=== PATIENT | female | born 1990 | race American Indian/Alaskan Native ===

== ENCOUNTER 2019-09-14 13:26 | Emergency (ER) | payer MEDICAID ==
[2019-09-14 13:59] VITALS: BP 126/84
--- NOTE | 2019-09-14 14:22 | Emergency Department Report ---
Blank Doc - Documentation Documentation: 29-year-old female that presents with chest pain and SOB with dizziness. This initial assessment/diagnostic orders/clinical plan/treatment(s) is/are subject to change based on patients health status, clinical progression and re- assessment by fellow clinical providers in the ED. Further treatment and workup at subsequent clinical providers discretion. Patient/guardian urged not to elope from the ED as their condition may be serious if not clinically assessed and managed. Initial orders include: 2- EKG 3- labs 4- CXR
[2019-09-14 15:38] LABS: Basophils % (Auto) 0.3 % (0.0-1.8); Eosinophils # (Auto) 0.1 K/mm3 (0.0-0.4); Eosinophils % (Auto) 0.9 % (0.0-4.3); Hematocrit 41.9 % (30.3-42.9); Hemoglobin 13.3 gm/dl (10.1-14.3); Lymphocytes # (Auto) 1.5 K/mm3 (1.2-5.4); Lymphocytes % (Auto) 20.3 % (13.4-35.0); Mean Corpuscular HGB Conc 32 % (30-34); Mean Corpuscular Volume 83 fl (79-97); Monocytes # (Auto) 0.9 K/mm3 (0.0-0.8); Monocytes % (Auto) 12.8 % (0.0-7.3); Platelet Count 212 K/mm3 (140-440); Red Blood Count 5.07 M/mm3 (3.65-5.03); Red Cell Distribution Width 15.3 % (13.2-15.2)
[2019-09-14 15:59] LABS: BUN/Creatinine Ratio 11; Blood Urea Nitrogen 8 mg/dL (7-17); Calcium 9.7 mg/dL (8.4-10.2); Hemolysis Index 12
--- NOTE | 2019-09-14 16:39 | XRay Report ---
CHEST 2 VIEWS INDICATION: sob. COMPARISON: None. FINDINGS: Support devices: None. Heart: Within normal limits. Pulmonary vasculature: Normal. Lungs/pleura: No acute air space or interstitial disease. No pneumothorax. Additional findings: None. IMPRESSION: 1. Normal chest. Signer Name: Raúl Medina MD Signed: 09/14/2019 4:34 PM Workstation Name: [id number]
--- NOTE | 2019-09-14 16:58 | Emergency Department Report ---
ED Dizziness HPI - General Chief Complaint: Dizziness Stated Complaint: SOB Time Seen by Provider: 09/14/19 14:22 Source: patient Mode of arrival: Wheelchair Limitations: No Limitations - Related Data Allergies Allergy/AdvReac Type Severity Reaction Status Date / Time Influenza Virus Vaccines Allergy Unknown Verified 09/14/19 13:58 latex AdvReac Hives Verified 09/14/19 13:48 nut - unspecified AdvReac Hives Verified 09/14/19 13:48 Penicillins AdvReac Angioedema Verified 09/14/19 13:48 pineapple AdvReac Angioedema Verified 09/14/19 13:48 Sulfa (Sulfonamide AdvReac Hives Verified 09/14/19 13:48 Antibiotics) sulfamethoxazole AdvReac Hives Verified 09/14/19 13:48 [From Bactrim] trimethoprim [From Bactrim] AdvReac Hives Verified 09/14/19 13:48 ED Review of Systems ROS: Stated complaint: SOB Other details as noted in HPI ED Past Medical Hx - Past Medical History Additional medical history: von wilderbran disease - Surgical History Hx Appendectomy: Yes (2012) Additional Surgical History: cyst removed from rt ear 1998 - Social History Smoking Status: Never Smoker Substance Use Type: None ED Physical Exam - General Limitations: No Limitations ED Course Vital Signs 09/14/19 13:58 Temperature 98.0 F Pulse Rate 71 Respiratory 18 Rate Blood Pressure 126/84 O2 Sat by Pulse 98 Oximetry ED Medical Decision Making - Lab Data Result diagrams: 09/14/19 15:29 09/14/19 15:29 - Radiology Data Radiology results: report reviewed Patient Name: ELICIA SÁNCHEZ Gender: Female Date of : 1990 Referring Provider: SULMA GUSMAN Organization: [facility] Accession Number: [id number] Requested Date: September 14, 2019 14:22 Report Status: Final Requested Procedure: 1 Procedure Description: XR chest routine 2V Modality: XR Findings Reporting MD: Raúl Medina Dictation Time: September 14, 2019 15:34 Director Drug Safety: Not available Can Technician Date: CHEST 2 VIEWS INDICATION: sob. COMPARISON: None. FINDINGS: Support devices: None. Heart: Within normal limits. Pulmonary vasculature: Normal. Lungs/pleura: No acute air space or interstitial disease. No pneumothorax. Additional findings: None. IMPRESSION: 1. Normal chest. Signer Name: Raúl Medina MD Signed: 09/14/2019 3:34 PM Workstation Name: [id number] Critical care attestation.: If time is entered above; I have spent that time in minutes in the direct care of this critically ill patient, excluding procedure time. ED Disposition Clinical Impression: Atypical chest pain, Palpitations Disposition: DC- TO HOME OR SELFCARE Is pt being admited?: No Does the pt Need Aspirin: No Condition: Stable Instructions: Chest Pain (ED), Palpitations (ED), Anxiety (ED), Panic Disorder (ED) Additional Instructions: Your chest x-ray was normal as well as her EKG symptoms appear to be more related to your prehospital development. Please be sure to follow-up with the listed provider for further evaluation evaluation and treatment and management were necessary. Referrals: JOSE SEVERINO MD [Staff Physician] - 3-5 Days
== END 2019-09-14 17:23 | disposition home or self-care (01) ==
LOC: ED 13:26
DX: R07.89 Other chest pain (principal); R00.2 Palpitations; Z90.49 Acquired absence of other specified parts of digestive tract
CPT/HCPCS: 36415; 71046; 80048; 84703; 85025; 93005; 93010; 99284